=== PATIENT | male | born 1975 | race African-American/Black ===

== ENCOUNTER 2024-11-25 08:57 | Emergency (ER) | payer OTHER ==
[~2024-11-25] VITALS: Ht 167.6 cm; Wt 98.2 kg
[2024-11-25] MEDS: HYDROcodone-ACET 5/325MG TAB PO ONE (09:35)
[2024-11-25 09:36] VITALS: PULSE 61; RESP 16; O2SAT 99
--- NOTE | 2024-11-25 09:39 | ED.PDOC ---
History of Present Illness HPI Comments 49 year old male presents to the ED with a chief compliant of back pain onset 1 week. Patient states he went for a run about 1 week ago, ran about 6 miles, shortly after began experiencing low back pain. Patient noticed pain has worsen, is sharp, worsens with walking. PMHx HTN. Denies fall, injury, fevers, n umbness/tingling of extremities, dizziness, chest pain, dysuria, hematuria. No other symptoms or modifying factors present at this time. Chief Complaint: Back Pain Time Seen by MD: 09:10 Primary Care Provider: OSMANY Reviewed Notes: Medications, Allergies Allergies: Coded Allergies: NO KNOWN ALLERGIES (Unverified , 11/25/24) Information Source: Friend Mode of Arrival: Ambulatory Severity: Moderate Timing: Weeks Duration: Since onset Prehospital treatment: None Past Medical History PAST MEDICAL HISTORY: HTN Surgical History: Denies all surgeries Family History Family History: Reviewed,noncontributory to illness, No family hx of Cancer, No family hx of DM, No family hx of Heart nayana, No family hx of HTN, No family hx ofKidney nayana, No family hx of Liver nayana, No family hx of Lung nayana, No family hx of Stroke Social History Smoker: Non-Smoker Alcohol: Denies ETOH Use Drugs: Denies Drug Use Lives In: Home Constitutional: denies: chills, diaphoresis, fatigue, fever, malaise, sweats, weakness, others EENTM: denies: blurred vision, double vision, ear bleeding, ear discharge, ear drainage, ear pain, ear ringing, eye pain, eye redness, hearing loss, mouth pain, mouth swelling, nasal discharge, nose bleeding, nose congestion, nose pain, photophobia, tearing, throat pain, throat swelling, voice changes, others Respiratory: denies: cough, hemoptysis, orthopnea, SOB at rest, shortness of breath, SOB with excertion, stridor, wheezing, others Cardiovascular: denies: chest pain, dizzy spells, diaphoresis, Dyspnea on ex ertion, edema, irregular heart beat, left arm pain, lightheadedness, palpitations, PND, syncope, others Gastrointestinal: denies: abdomen distended, abdominal pain, blood streaked bowels, constipated, diarrhea, dysphagia, difficulty swallowing, hematemesis, melena, nausea, poor appetite, poor fluid intake, rectal bleeding, rectal pain, vomiting, others Genitourinary: denies: burning, dysuria, flank pain, frequency, hematuria, incontinence, penile discharge, penile sore, pain, testicle pain, testicle swelling, urgency, others Neurological: denies: dizziness, fainting, headache, left sided numbness, left sided weakness, numbness, paresthesia, pre-existing deficit, right sided numbness, right sided weakness, seizure, speech problems, tingling, tremors, weakness, others Musculoskeletal: reports: back pain; denies: gout, joint pain, joint swelling, muscle pain, muscle stiffness, neck pain, others Integumetry: denies: bruises, change in color, change in hair/nails, dryness, laceration, lesions, lumps, rash, wounds, others Allergic/Immunocompromised: denies: Difficulty Healing, Frequent Infections, Hives, Itching, others Hematologic/Lymphatic: denies: anemia, blood clots, easy bleeding, easy bruising, swollen glands, others Endocrine: denies: excessive hunger, excessive sweating, excessive thirst, excessive urination, flushing, intolerance to cold, intolerance to heat, unexplained weight gain, unexplained weight loss, others Psychiatric: denies: anxiety, bipolar disorder, depression, hopeless, panic disorder, schizophrenia, sleepless, suicidal, others All Other Systems: Reviewed and Negative Physical Exam General Appearance: Moderate Distress HEENT: Normal ENT Inspection, Pharynx Normal, TMs Normal Neck: Full Range of Motion, Non-Tender, Normal, Normal Inspection Respiratory: Chest Non-Tender, Lungs Clear, No Accessory Muscle Use, No Respiratory Distress, Normal Breath Sounds Cardiovascular: No Edema, No JVD, No Murmur, No Gallop, Normal Peripheral Pulses, Regular Rate/Rhythm Breast Exam: Deferred Gastrointestinal: No Organomegaly, Non Tender, No Pulsatile Mass, Normal Bowel Sounds, Soft Genitalia: Deferred Pelvic: Deferred Rectal: Deferred Extremities: No calf tenderness, Normal capillary refill, Normal inspection, Normal range of motion, Non-tender, No pedal edema Musculoskeletal : Apperance: Normal Neurologic: Alert, round kiln drawer II-XII nml as Tested, No Motor Deficits, Normal Affect, Normal Mood, No Sensory Deficits Cerebellar Function: NOT DONE Reflexes: NOT DONE Skin: Dry, Normal Color, Warm Peripheral Pulses: 3+ Radial (R), 3+ Radial (L) Lymphatic: No Adenopathy Was a procedure done? Was a procedure done?: No Differential Dx Considerations may include: Degenerative disease Musculoskeletal pain X-Ray, Labs, Meds, VS Vital Signs Date Time Temp Pulse Resp B/P (MAP) Pulse Ox O2 Delivery O2 Flow Rate FiO2 11/25/24 09:36 61 16 99 Room Air* 0 21 11/25/24 09:36 97.7 61 16 137/95 (109) 99 97.7 11/25/24 09:09 97.8 58 18 138/90 (106) 99 97.8 Current Medications Medications (Trade) Dose Ordered Sig/Meliza Route Start Time Stop Time Status Last Admin Acetaminophen/ Hydrocodone Bitart (Hansen 5/325MG Tab) 1 tab ONCE ONCE PO 11/25/24 09:30 11/25/24 09:31 DC 11/25/24 09:35 Patient alert. Complaining of back pain. Has been having these symptoms on and off for many months. Vitals stable. Was given Hansen. Moving all extremities. No sign of distress on clinical examination. X-ray reviewed does not show any acute changes. Explained to the patient. Was told to follow up with his primary care physician. Was told to come back if there is any problem. [place] [id number] Ph: [phone] DIAGNOSTIC IMAGING Diagnostic Imaging Report : [id number] Signed PATIENT: AMANDA PÉERZ JACCT: [id number] UNIT: [id number] : 1975 LOC: ER ROOM / BED: / AGE / SEX: 49 / M ADM STATUS: REG ER SERVICE 5 ORDERING PHYSICIAN: JILLIAN SALOMON MD PROCEDURE(s): LS - LUMBAR SPINE 4+ VIEW REASON: pain ORDER NUMBER(s): [id number], ACCESSION NUMBER(s): [id number] INDICATION: pain TECHNIQUE: 5 views of the lumbar spine were obtained. COMPARISON: None FINDINGS: There are no acute fractures or subluxations. IMPRESSION: No acute fracture or subluxation. ATED BY: FERDINAND CASTORENA MD DICTATED DATE/TIME: 11/25/24 1015 SIGNED BY: FERDINAND CASTORENA MD SIGNED DATE/TIME: 11/25/24 1015 CC: Time of 1ST Reevaluation: 09:40 Reevaluation 1ST: Unchanged Patient Education/Counseling: Diagnosis, Treatment, Prognosis Family Education/Counseling: No Family Present SEPSIS Sepsis Screen Date sepsis recognized/suspect: Nov 25, 2024 Time Sepsis recognized/suspect: 955 Recent Procedure: No On Antibiotic Therapy: No Respiratory Rate >20: No Heart Rate >90: No Temp<36 C (96.8 F) or >38.3 C: No SBP <90 or MAP <65 mmHG: No New Acute Mental Status Change: No Is the patient on CPAP, BIPAP,: No Physician Orders Lumbar Spine 4+ View (11/25/24 09:26) Vital Signs Date Time Temp Pulse Resp B/P (MAP) Pulse Ox O2 Delivery O2 Flow Rate FiO2 11/25/24 09:36 61 16 99 Room Air* 0 21 11/25/24 09:36 97.7 61 16 137/95 (109) 99 97.7 11/25/24 09:09 97.8 58 18 138/90 (106) 99 97.8 Medications Medications Dose Ordered Sig/Meliza Route Start Time Stop Time Status Last Admin Dose Admin Acetaminophen/ Hydrocodone Bitart 1 tab ONCE ONCE PO 11/25/24 09:30 11/25/24 09:31 DC 11/25/24 09:35 Departure 1 Departure Time of Disposition: 09:42 Impression: Primary Impression: Musculoskeletal pain Additional Impression: Lumbar sprain Qualified Codes: S33.5XXA - Sprain of ligaments of lumbar spine, initial encounter Disposition: HOME / SELF CARE / HOMELESS Condition: Good Discharged With: Self Critical Care Note Critical Care Time?: No Stability Stability form required: No Heart Score Heart Score: Heart Score Response (Comments) Value History N/A 0 EKG N/A 0 Age N/A 0 Risk Factors N/A 0 Troponin N/A 0 Total 0 I personally scribed for JILLIAN SALOMON MD ([email or web address]) on 11/25/24 at 09:39. Electronically submitted by Bethany Suarez ([email or web address]). I personally scribed for JILLIAN SALOMON MD ([email or web address]) on 11/25/24 at 10:22. Electronically submitted by Bethany Suarez ([email or web address]). JILLIAN SALOMON MD Nov 25, 2024 09:39
[2024-11-25] MEDS: FAMOTIDINE 20 MG TAB PO ONE (09:48)
--- NOTE | 2024-11-25 10:18 | DVH ---
INDICATION: pain TECHNIQUE: 5 views of the lumbar spine were obtained. COMPARISON: None FINDINGS: There are no acute fractures or subluxations. IMPRESSION: No acute fracture or subluxation.
[2024-11-25] MEDS ORDERED: COSYNTROPIN INJ 0.25 MG VIAL IM ONE (10:45)
[2024-11-25] MEDS: methylPREDNISolone SOD SUCC 125 MG/2 ML VL IM ONE (11:04)
[2024-11-25 11:11] VITALS: BP 126/84; PULSE 68; RESP 18; TEMP 97; O2SAT 98
== END 2024-11-25 11:14 | disposition home or self-care (01) ==
LOC: ER 08:57
DX: S33.5XXA Sprain of ligaments of lumbar spine, initial encounter (principal); M79.18 Myalgia, other site; I10 Essential (primary) hypertension; X58.XXXA Exposure to other specified factors, initial encounter; Y93.89 Activity, other specified; Y92.89 Other specified places as the place of occurrence of the external cause; Y99.8 Other external cause status
CPT/HCPCS: 72110; 96372; 99283; J2919

== ENCOUNTER 2024-12-31 06:07 | Emergency (ER) | payer OTHER ==
[~2024-12-31] VITALS: Ht 167.6 cm; Wt 81.8 kg
[2024-12-31 06:31] VITALS: BP 135/104; TEMP 97.9
[2024-12-31 06:32] VITALS: PULSE 57; RESP 12; O2SAT 96
--- NOTE | 2024-12-31 07:01 | ED.PDOC ---
Back pain HPI HPI Comments 49 year old male with a past medical history of hypertension presents to the emergency department with a chief complaint of chronic back pain. Patient has been experiencing intermittent low back pain for the past month, pain worsen last night. He has been seen at [facility] for chronic back pain, was prescribed Naproxen, has not been improving symptoms. Patient woke up this morning, and noticed pain was radiating to RT leg. Was seen in this ED on 11/25/24, was treated for back pain. No other symptoms or modifying factors present at this time. Denies history of cancer Denies fevers chills night sweats nausea vomiting unintentional weight loss Denies abdominal tearing pain Denies syncope Denies urinary changes or urinary incontinence Denies numbness tingling of the groin her inner thigh Denies previous back procedures or surgeries Chief Complaint: Back Pain Time Seen by MD: 06:50 Primary Care Provider: [facility] Reviewed Notes: Nurses Notes, Medications, Allergies Allergies: Coded Allergies: NO KNOWN ALLERGIES (Unverified , 11/25/24) Information Source: Patient Mode of Arrival: Ambulatory Timing: Months Duration: Intermittent Severity: Moderate Prehospital treatment: Pain Meds Quality: Sharp Onset: Spontaneous History of: Chronic Back Pain Modifying Factors: Nothing Past Medical History PAST MEDICAL HISTORY: HTN Surgical History: Denies all surgeries Family History Family History: Reviewed,noncontributory to illness, No family hx of Cancer, No family hx of DM, No family hx of Heart nayana, No family hx of HTN, No family hx ofKidney nayana, No family hx of Liver nayana, No family hx of Lung nayana, No family hx of Stroke Social History Smoker: Non-Smoker Alcohol: Denies ETOH Use Drugs: Denies Drug Use Lives In: Home All Other Systems: Reviewed and Negative (as per hpi) Physical Exam General Appearance: No Apparent Distress, Normal HEENT: Normal ENT Inspection, Pharynx Normal, TMs Normal Neck: Full Range of Motion, Non-Tender, Normal, Normal Inspection Respiratory: Chest Non-Tender, Lungs Clear, No Accessory Muscle Use, No Respiratory Distress, Normal Breath Sounds Cardiovascular: No Edema, No JVD, No Murmur, No Gallop, Normal Peripheral Pulses, Regular Rate/Rhythm Breast Exam: Deferred Gastrointestinal: No Organomegaly, Non Tender, No Pulsatile Mass, Normal Bowel Sounds, Soft Genitalia: Deferred Pelvic: Deferred Rectal: Deferred Extremities: No calf tenderness, Normal capillary refill, No pedal edema, Other (RT striaght leg test positive ) Musculoskeletal : Apperance: Normal Neurologic: Alert, nanotechnician II-XII nml as Tested, No Motor Deficits, Normal Affect, Normal Mood, No Sensory Deficits Cerebellar Function: Normal Reflexes: Normal Skin: Dry, Normal Color, Warm Lymphatic: No Adenopathy Was a procedure done? Was a procedure done?: No Back Pain Differential Dx Differential Diagnosis: Musculoskeletal Pain X-Ray, Labs, Meds, VS Vital Signs Date Time Temp Pulse Resp B/P (MAP) Pulse Ox O2 Delivery O2 Flow Rate FiO2 12/31/24 06:32 57 12 96 Room Air* 0 21 12/31/24 06:31 97.9 57 12 135/104 (114) 97 97.9 12/31/24 06:08 97.6 76 20 141/96 99 97.6 X-Ray, Labs, Meds, VS Comment 49 year old male with a past medical history of hypertension presents to the em ergency department with a chief complaint of chronic back pain. Patient arrives alert and oriented, ABC's intact, afebrile, vital signs stable, saturating well in room air Patient was given: Toradol 60 mg IM, Solu-Medrol 125 mg IM. Tolerated medications with no adverse reaction. The patient presents with signs and symptoms of sciatica. The episode appears to be exacerbated by an unknown cause at this time. However, the patient's motor strengths are currently intact. There are no signs of cauda equina or cord compression at this time. I suspect most likely a radicular nature of their symptoms that should resolve with some bed rest, NSAIDs, pain control medications, and stretching as tolerated. The differential for a acute vascular, neurologic, malignant, or infectious etiology is much less likely given their presentation. The patient does not warrant a radiological exam at this time. On reassessment, the patient's symptoms improved and the patient was able to ambulate without assistive devices. The patient will follow up with the primary care doctor to see if there symptoms magui. An MRI may need to be ordered if there symptoms worsen or do not improve over time. The patient was counseled regard to the diagnosis and management of the condition and verbalized understanding to this. The patient understands to return to the ER or seek immediate medical attention if symptoms worsen. On reevaluation, patient had symptomatic improvement. Patient is stable for discharge at this time. External notes reviewed. Test results and diagnostic imaging interpreted. All diagnostic findings, discharge care, education and instructions provided Follow-up with PCP in 2 to 3 days Patient verbalized understanding and agreed to treatment plan Vital signs stable, afebrile, no acute distress noted Patient ambulatory with strong steady gait Advised to return precautions for any new or worsening symptoms, return to ER immediately for re-evaluation Patient is aware that the purpose of this visit was for an acute medical rachana gency requiring emergent stabilization. Chronic conditions, including malignancies have not been ruled out. Patient is instructed to follow up with PCP as directed and discharge instructions for continued care and workup. If unable to arrange follow-up, patient is to return to the emergency department for reassessment. Patient (parent or legal guardian if applicable) was given v erbal and written discharge instructions and acknowledges understanding. Additional MDM Review of External, Non-ED records: External records reviewed. Discussion with independent historian (EMS, family) history obtained from the patient/parents (if applicable) at bedside Chronic conditions affecting care: HTN Social determinants of health affecting care: None Consideration of admission (observation or admission): I considered escalation of care to admission for this patient, however given the reassuring workup, the patient is safe for outpatient management. Time of 1ST Reevaluation: 07:20 Reevaluation 1ST: Improved Patient Education/Counseling: Diagnosis, Treatment Family Education/Counseling: No Family Present SEPSIS Sepsis Screen Date sepsis recognized/suspect: Dec 31, 2024 Time Sepsis recognized/suspect: 611 Recent Procedure: No On Antibiotic Therapy: No Respiratory Rate >20: No Heart Rate >90: No Temp<36 C (96.8 F) or >38.3 C: No SBP <90 or MAP <65 mmHG: No New Acute Mental Status Change: No Is the patient on CPAP, BIPAP,: No Vital Signs Date Time Temp Pulse Resp B/P (MAP) Pulse Ox O2 Delivery O2 Flow Rate FiO2 12/31/24 06:32 57 12 96 Room Air* 0 21 12/31/24 06:31 97.9 57 12 135/104 (114) 97 97.9 12/31/24 06:08 97.6 76 20 141/96 99 97.6 Departure 1 Departure Time of Disposition: 07:06 Impression: Primary Impression: Lumbar radiculopathy Disposition: HOME / SELF CARE / HOMELESS Condition: Stable Discharged With: Self Critical Care Note Critical Care Time?: No Stability Stability form required: No Heart Score Heart Score: Heart Score Response (Comments) Value History N/A 0 EKG N/A 0 Age N/A 0 Risk Factors N/A 0 Troponin N/A 0 Total 0 I personally scribed for [place] NP ([email or web address]) on 12/31/24 at 07:01. Electronically submitted by Bethany Suarez ([email or web address]). I personally scribed for [place] NP ([email or web address]) on 12/31/24 at 07:11. Electronically submitted by Bethany Suarez ([email or web address]). I personally scribed for [place] NP ([email or web address]) on 12/31/24 at 07:20. E lectronically submitted by Bethany Suarez ([email or web address]). [place] NP Dec 31, 2024 07:01
[2024-12-31] MEDS: methylPREDNISolone SOD SUCC 125 MG/2 ML VL IM ONE (07:26)
[2024-12-31] MEDS: KETOROLAC TROMETH 60MG/2ML VIAL IM ONE (07:27)
== END 2024-12-31 08:07 | disposition home or self-care (01) ==
LOC: ER 06:07
DX: M54.16 Radiculopathy, lumbar region (principal); I10 Essential (primary) hypertension
CPT/HCPCS: 96372; 99284; J1885; J2919